=== PATIENT | male | born 1995 | race American Indian/Alaskan Native ===

== ENCOUNTER 2020-03-06 00:46 | Emergency (ER) | payer SELFPAY ==
[2020-03-06 01:31] VITALS: BP 140/96
[2020-03-06 03:12] LABS: Bacteria,Urine 1+ /HPF (Negative); Bilirubin,Urine NEG (Negative); Blood,Urine LG (Negative); Color,Urine Yellow (Yellow); Mucus,Urine 2+ /HPF; Urobilinogen,Urine < 2.0 mg/dL (<2.0)
== END 2020-03-06 01:50 | disposition left against medical advice (07) ==
LOC: ED 00:46
DX: R53.81 Other malaise (principal); R53.1 Weakness; Z53.21 Procedure and treatment not carried out due to patient leaving prior to being seen by health care provider
CPT/HCPCS: 81001; 87086